=== PATIENT | female | born 1985 | race Caucasian/White ===

== ENCOUNTER 2017-05-20 17:43 | Emergency (ER) | payer MEDICAID, OTHER ==
[~2017-05-20] VITALS: Ht 167.6 cm; Wt 113.6 kg
[2017-05-20 17:52] VITALS: Ht 167.6 cm; Wt 113.6 kg
[2017-05-20] MEDS ORDERED: HYDROCODONE/APAP (5/325) TAB PO ONE (18:30)
[2017-05-20] MEDS ORDERED: IBUPROFEN 600 MG TAB PO ONE (18:30)
--- NOTE | 2017-05-20 18:46 | ERD ---
ER Documentation Chief Complaint Chief Complaint LEFT ANKLE/FOOT PAIN AND MILD DEFORMITY D/T FALL OUTSIDE HOSPITAL HPI 31-year-old female comes in status post fall complaining of right knee, bilateral foot and left ankle pain after arriving at the hospital today. She states that she was walking and did not see the steps that were going down and fell forward. She is diffuse pain that is achy, worse pain is in the right knee. She also comes a diffuse dorsal foot pain, and left lateral ankle pain. Pain is worse with weightbearing and better at rest. ROS All systems reviewed and are negative except as per history of present illness. Medications Home Meds Active Scripts Ibuprofen* (Motrin*) 600 Mg Tab, 600 MG PO Q6, #30 TAB Prov:SANDEEP CUADRA PA-C 05/20/17 Hydrocodone/Acetaminophen ([place] 5-325 Tablet) 1 Each Tablet, 1 TAB PO Q6H Y for PAIN, #15 TAB Prov:SANDEEP CUADRA PA-C 05/20/17 Allergies Allergies: Coded Allergies: No Known Drug Allergies (Verified Allergy, Unknown, 05/25/15) PMhx/Soc History of Surgery: Yes (7 EAR SXS) Anesthesia Reaction: No Hx Neurological Disorder: No Hx Respiratory Disorders: No Hx Cardiac Disorders: No Hx Psychiatric Problems: No Hx Miscellaneous Medical Probl: No Hx Alcohol Use: No Hx Substance Use: No Hx Tobacco Use: No Smoking Status: Never smoker Physical Exam Vitals Vital Signs Date Time Temp Pulse Resp B/P Pulse Ox O2 Delivery O2 Flow Rate FiO2 05/20/17 17:52 99.1 72 20 136/72 99 Physical Exam General: Well-developed, well-nourished. The patient appears in no acute distress. HEENT: Head is normocephalic, atraumatic. No scleral icterus. Neck: Supple. Nontender. Lungs: Clear to auscultation. Normal air movement. Heart: Regular rate and rhythm. S1 and S2 are normal. No murmurs, gallops, or rubs. Abdomen: Nondistended. Extremities: Lower Extremity - right: Skin: Abrasion to the right knee Compartments: Soft Motor: Full active range of motion hip/knee/ankle/foot Sensation: Intact to light touch FDWS/MF/LF/P surfaces. Bones: Nontender pelvis/knee/proximal tibia/ malleoli/foot Joints: No effusion or laxity Pulses/Perfusion: 2+ DP, Capillary refill < 2 seconds Abrasion to the dorsum of the left foot and right foot. Soft tissue swelling on the left dorsal foot. Patient has left lateral ankle pain, no bony deformities, he has full range of motion of flexion and dorsiflexion. Neurologic: Alert and oriented 3. No focal deficits. Skin: Normal turgor. No rash or lesions. Results 24 hrs Current Medications Medications (Trade) Dose Ordered Sig/New Route PRN Reason Start Time Stop Time Status Last Admin Dose Admin Ibuprofen (Motrin) 600 mg ONCE ONCE PO 05/20/17 18:30 05/20/17 18:32 DC 05/20/17 19:18 Acetaminophen/ Hydrocodone Bitart ([place] (5/325)) 1 tab ONCE ONCE PO 05/20/17 18:30 05/20/17 18:32 DC 05/20/17 19:17 DIAGNOSTIC IMAGING REPORT Patient: AREN OROZCO : 1985 Age: 31 Sex: F MR #: [id number] DOS: 05/20/17 1829 Ordering MD: SANDEEP CUADRA PA-C Location: [facility] Room/Bed: PROCEDURE: XR Foot. CLINICAL INDICATION: Fall TECHNIQUE: AP, lateral and oblique views of the right foot was obtained. The images were reviewed on a PACS workstation. COMPARISON: None. FINDINGS: The bones of the foot appear intact, with no evidence of fracture, dislocation, or subluxation. A small calcaneal heal spur is present. The joint spaces are preserved. Bone mineralization is normal. No significant soft tissue swelling is seen. IMPRESSION: 1. No acute osseous abnormality. RPTAT:AAJJ Physician Ritika Date Time Electronically viewed and signed by Physician Ritika on 05/20/2017 19:59 QL/ CC: SANDEEP CUADRA PA-C DIAGNOSTIC IMAGING REPORT Patient: AREN OROZCO : 1985 Age: 31 Sex: F MR #: [id number] DOS: 05/20/171828 Ordering MD: SANDEEP CUADRA PA-C Location: [facility] Room/Bed: PROCEDURE: XR Left Ankle. CLINICAL INDICATION: Fall TECHNIQUE: AP, oblique and lateral views of the left ankle were performed. COMPARISON: None. FINDINGS: There is a nondisplaced fracture at the base of the fifth metatarsal. The remaining osseous structures are unremarkable. The joint spaces are preserved. The talar dome is intact. Ankle mortise is symmetric. The soft tissues are grossly unremarkable. IMPRESSION: 1. Nondisplaced fracture at the base of the fifth metatarsal. RPTAT:AAJJ Physician Ritika Date Time Electronically viewed and signed by Physician Ritika on 05/20/2017 20:04 QL/ DIAGNOSTIC IMAGING REPORT Patient: AREN OROZCO : 1985 Age: 31 Sex: F MR #: [id number] DOS: 05/20/171828 Ordering MD: SANDEEP CUADRA PA-C Location: [facility] Room/Bed: PROCEDURE: XR Left Foot. CLINICAL INDICATION: Fall TECHNIQUE: AP, lateral and oblique views of the left foot was obtained. The images were reviewed on a PACS workstation. COMPARISON: None. FINDINGS: There is a nondisplaced fracture at the base of the fifth metatarsal. A small calcaneal heal spur is present. The remaining osseous structures are unremarkable. The joint space are preserved. Bone mineralization is appropriate IMPRESSION: 1. Nondisplaced fracture at the base of the fifth metatarsal. RPTAT:AAJJ Physician Ritika Date Time Electronically viewed and signed by Physician Ritika on 05/20/2017 20:01 QL/ CC: SANDEEP CUADRA PA-C DIAGNOSTIC IMAGING REPORT Patient: AREN OROZCO : 1985 Age: 31 Sex: F MR #: [id number] DOS: 05/20/17 1829 Ordering MD: SANDEEP CUADRA PA-C Location: [facility] Room/Bed: PROCEDURE: XR Knee. CLINICAL INDICATION: Right knee pain TECHNIQUE: 3 images of the right knee are available for review. COMPARISON: None available FINDINGS: There is no acute fracture. Alignment is normal. Joint spaces are preserved. Soft tissues are grossly unremarkable. IMPRESSION: 1. No radiographic evidence of acute osseous abnormality of the right knee. RPTAT: UU .Shane Ward MD, MD Date Time Electronically viewed and signed by .Shane Ward MD, MD on 05/20/2017 19: 53 .K/ Procedures/MDM ED COURSE: Patient's left foot was placed in a posterior short leg to be nonweightbearing. Splint Assessment: Neurovascularly intact post splint placement with good fit. MDM: 31-year-old female comes in with a mechanical fall complaining of right knee, bilateral foot and left ankle pain, comes in with an acute closed x-ray at the base of the fifth metatarsal. Patient was placed in a posterior short leg splint, she was advised to follow-up with orthopedics. The x-rays of the right foot, left ankle, right knee are unremarkable. Departure Diagnosis: Primary Impression: Metatarsal fracture Additional Impressions: Contusion of knee, right Ankle injury Condition: Good SANDEEP CUADRA PA-C May 20, 2017 18:46
--- NOTE | 2017-05-20 19:54 | RADRPT ---
PROCEDURE: XR Knee. CLINICAL INDICATION: Right knee pain TECHNIQUE: 3 images of the right knee are available for review. COMPARISON: None available FINDINGS: There is no acute fracture. Alignment is normal. Joint spaces are preserved. Soft tissues are grossly unremarkable. IMPRESSION: 1. No radiographic evidence of acute osseous abnormality of the right knee. RPTAT: UU .Shane Ward MD, MD Date Time Electronically viewed and signed by .Shane Ward MD, on 05/20/2017 19:53 .K/
[2017-05-20] MEDS ORDERED: HYDR-906 PO (19:59)
[2017-05-20] MEDS ORDERED: IBUP-1542 PO (19:59)
--- NOTE | 2017-05-20 20:00 | RADRPT ---
PROCEDURE: XR Foot. CLINICAL INDICATION: Fall TECHNIQUE: AP, lateral and oblique views of the right foot was obtained. The images were reviewed on a PACS workstation. COMPARISON: None. FINDINGS: The bones of the foot appear intact, with no evidence of fracture, dislocation, or subluxation. A sm all calcaneal heal spur is present. The joint spaces are preserved. Bone mineralization is normal. No significant soft tissue swelling i s seen. IMPRESSION: 1. No acute osseous abnormality. RPTAT:AAJJ Physician Ritkia Date Time Electronically viewed and signed by Physician Ritika on 05/20/2017 19:59 QL/
--- NOTE | 2017-05-20 20:02 | RADRPT ---
PROCEDURE: XR Left Foot. CLINICAL INDICATION: Fall TECHNIQUE: AP, lateral and oblique views of the left foot was obtained. The images were reviewed on a PACS workstation. COMPARISON: None. FINDINGS: There is a nondisplaced fracture at the base of the fifth metatarsal. A small calcaneal heal spur is present. The remaining osseous structures are unremarkable. The joint space are preserved. Bone mineralizatio n is appropriate IMPRESSION: 1. Nondisplaced fracture at the base of the fifth metatarsal. RPTAT:AAJJ Physician Ritika Date Time Electronically viewed and signed by Physician Ritika on 05/20/2017 20:01 QL/
--- NOTE | 2017-05-20 20:04 | RADRPT ---
PROCEDURE: XR Left Ankle. CLINICAL INDICATION: Fall TECHNIQUE: AP, oblique and lateral views of the left ankle were performed. COMPARISON: None. FINDINGS: There is a nondisplaced fracture at the base of the fifth metatarsal. The remaining osseous structures are unremarkable. The joint spaces are preserved. The talar dome is intact. Ankle mortise is symmetric. The soft tissues are grossly unremarkable. IMPRESSION: 1. Nondisplaced fracture at the base of the fifth metatarsal. RPTAT:AAJJ Cecilia Cervantes Physician Date Time Electronically viewed and signed by Cecilia Cervantes Physician on 05/20/2017 20:04 QL/
[2017-05-20 21:01] VITALS: PULSE 73; RESP 24; TEMP 98
== END 2017-05-20 20:35 | disposition home or self-care (01) ==
LOC: FTE 17:43
DX: S92.355A Nondisplaced fracture of fifth metatarsal bone, left foot, initial encounter for closed fracture (principal); S80.01XA Contusion of right knee, initial encounter; W10.8XXA Fall (on) (from) other stairs and steps, initial encounter; Y92.239 Unspecified place in hospital as the place of occurrence of the external cause
CPT/HCPCS: 29515; 73562; 73610; 73630; Z7502; Z7610